=== PATIENT | female | born 1950 | race Two or more races ===

== ENCOUNTER 2019-04-11 12:24 | Outpatient (CLI) | payer OTHER ==
[~2019-04-11 12:24] MED LIST: ASA81 MG; ATORVASTATIN CA40 MG; FENOFIBRATE43 MG; NORVASC5 MG; OMEGA-31000 MG; [UNRECOGNIZED DRUG - OTHER]
[2019-04-12] MEDS ORDERED: FENOFIBRIC ACID35 MG (05:12)
[2019-04-12] MEDS ORDERED: SELENIUM200 MC2 (05:13)
[2019-04-12] MEDS ORDERED: ESTRADIOL0.5 MG (16:32)
== END 2019-04-11 12:26 | disposition home or self-care (01) ==
LOC: RAD 12:24
DX: R10.84 Generalized abdominal pain (principal)

== ENCOUNTER 2019-04-12 04:59 | Inpatient (IN) | payer OTHER ==
[~2019-04-12] VITALS: Ht 160 cm; Wt 59.9 kg
[2019-04-12] MEDS ORDERED: FENOFIBRIC ACID35 MG (05:12)
[2019-04-12] MEDS ORDERED: SELENIUM200 MC2 (05:13)
[2019-04-12] MEDS ORDERED: ESTRADIOL0.5 MG (16:32)
== END 2019-04-23 14:58 | disposition home or self-care (01) | DRG 339 ==
LOC: ER 04:59 → O/R 13:48 → SURH 13:48
PROVIDERS: ADMIT Surgery
PROC: 0DTJ4ZZ Resection of Appendix, Percutaneous Endoscopic Approach (ICD-10-PCS; principal; 2019-04-12 14:00)
PROC: BW21Y0Z Computerized Tomography (CT Scan) of Abdomen and Pelvis using Other Contrast, Unenhanced and Enhanced (ICD-10-PCS; 2019-04-16)
DX: K35.33 Acute appendicitis with perforation, localized peritonitis, and gangrene, with abscess (principal); I31.3 Pericardial effusion (noninflammatory); C75.1 Malignant neoplasm of pituitary gland; T81.43XA Infection following a procedure, organ and space surgical site, initial encounter; K91.31 Postprocedural partial intestinal obstruction; I10 Essential (primary) hypertension; G47.33 Obstructive sleep apnea (adult) (pediatric); N28.1 Cyst of kidney, acquired; B96.1 Klebsiella pneumoniae [K. pneumoniae] as the cause of diseases classified elsewhere

== ENCOUNTER 2020-05-21 12:36 | Outpatient (CLI) | payer OTHER ==
[~2020-05-21 12:36] MED LIST changes: +ESTRADIOL0.5 MG; +FENOFIBRIC ACID35 MG; +SELENIUM200 MC2
== END 2020-05-21 18:00 | disposition home or self-care (01) ==
LOC: PPH VACUNA 12:36
PROVIDERS: ATTEND Emergency Medicine Pediatric Emergency Medicine
DX: Z23 Encounter for immunization (principal)

== ENCOUNTER 2021-01-19 08:00 | Outpatient (CLI) | payer OTHER | END 2021-01-19 08:30 | disposition home or self-care (01) | LOC: PPH VACUNA 08:00 | PROVIDERS: ATTEND Emergency Medicine Pediatric Emergency Medicine | DX: Z23 Encounter for immunization (principal) ==

== ENCOUNTER 2021-06-12 07:51 | Outpatient (CLI) | payer OTHER | END 2021-06-12 07:55 | disposition home or self-care (01) | LOC: RAD 07:51 | PROVIDERS: ATTEND Ophthalmology | DX: R07.89 Other chest pain (principal) ==

== ENCOUNTER 2022-04-05 07:37 | Outpatient (CLI) | payer OTHER | END 2022-04-05 07:41 | disposition home or self-care (01) | LOC: RAD 07:37 | PROVIDERS: ATTEND Internal Medicine | DX: M20.11 Hallux valgus (acquired), right foot (principal) ==

== ENCOUNTER → 2024-02-11 | Outpatient (CLI) | payer OTHER | END | disposition home or self-care (01) | LOC: RAD 08:21 | PROVIDERS: ATTEND Ophthalmology | DX: Z01.811 Encounter for preprocedural respiratory examination (principal) ==